=== PATIENT | female | born 1965 | race Caucasian/White ===

== ENCOUNTER 2018-03-25 22:36 | Emergency (ER) | payer BC ==
[2018-03-25 22:40] VITALS: BP 122/74; PULSE 84; RESP 16; TEMP 98.6; O2SAT 98
--- NOTE | 2018-03-25 22:58 | PD ---
HPI Chief Complaint: Injury Time Seen by Provider: 22:51 Travel History International Travel<30 days: No Contact w/Intl Traveler<30days: No Traveled to known affect area: No History of Present Illness HPI 52-year-old female here for evaluation of right wrist injury. The patient reports that she was at a hotel when she slipped on wet deepali onto an outstretched right arm. This occurred this evening. She experienced immediate pain in her right wrist. She also has some mild pain in her right great toe. Right wrist pain is moderate to severe, constant, worse with movements and palpation, slightly improved with rest. She denies head injury or LOC. No head neck or back pain. No pain in any other joint or extremity. She is right- hand dominant. PFSH Past Medical History Anxiety: Yes Diminished Hearing: No Immunizations Current: Yes ?: Not Past Surgical History Appendectomy: Yes Social History Alcohol Use: Yes Tobacco Use: Yes Substance Use: No Allergies-Medications (Allergen,Severity, Reaction): Coded Allergies: No Known Allergies (Unverified , 03/25/18) Reported Meds & Prescriptions Reported Meds & Active Scripts Active Ibuprofen 600 Mg Tab 600 Mg PO Q6H PRN Percocet (Oxycodone-Acetaminophen) 5-325 mg Tab 1 Tab PO Q6H PRN Review of Systems Except as stated in HPI: all other systems reviewed are Neg Physical Exam Narrative GENERAL: Well-developed, well-nourished, awake, alert, no apparent distress. SKIN: Focused skin assessment warm/dry. No lacerations or abrasions. HEAD: Atraumatic. Normocephalic. EYES: Pupils equal and round. No scleral icterus. No injection or drainage. ENT: Mucous membranes pink and moist. NECK: Trachea midline. No JVD. CARDIOVASCULAR: Regular rate and rhythm. Bilateral distal radial pulses are brisk and equal. RESPIRATORY: No accessory muscle use. Clear to auscultation. Breath sounds equal bilaterally. MUSCULOSKELETAL: Right wrist with obvious deformity and moderate diffuse swelling with limited range of motion and diffuse tenderness. The rest of her joints and extremities are without deformity, without tenderness, with normal range of motion. Right upper extremity is neurovascularly intact. All compartments in the right forearm are supple. No midline thoracic or lumbar spine tenderness or step-off. NEUROLOGICAL: Awake and alert. No obvious cranial nerve deficits. Motor grossly within normal limits. Normal speech. PSYCHIATRIC: Appropriate mood and affect; insight and judgment normal. Data Data Last Documented VS Vital Signs Date Time Temp Pulse Resp B/P (MAP) Pulse Ox O2 Delivery O2 Flow Rate FiO2 03/26/18 00:46 76 16 116/68 (84) 98 Room Air 03/26/18 00:15 2.00 03/25/18 22:40 98.6 Orders Orders Basic Metabolic Panel (Bmp) (03/25/18 22:54) Complete Blood Count With Diff (03/25/18 22:54) Prothrombin Time / Inr (Pt) (03/25/18 22:54) Act Partial Throm Time (Ptt) (03/25/18 22:54) Iv Access Insert/Monitor (03/25/18 22:54) Ecg Monitoring (03/25/18 22:54) Oximetry (03/25/18 22:54) Sodium Chloride 0.9% Flush (Ns Flush) (03/25/18 23:00) Wrist, Complete (Rff5kil) (03/25/18 ) Toe (Min 2vws) (03/25/18 ) Morphine Inj (Morphine Inj) (03/25/18 23:00) Lidocaine 2% Inj (Xylocaine 2% Inj) (03/25/18 23:45) Propofol 200 Mg/20 Ml Inj (Diprivan 200 (03/26/18 00:00) Morphine Inj (Morphine Inj) (03/26/18 00:00) Forearm (2vws) (03/26/18 ) Ketorolac Inj (Toradol Inj) (03/26/18 00:45) Shoe Post Op (03/26/18 ) Labs Laboratory Tests Test 03/25/18 23:30 White Blood Count 7.4 TH/MM3 Red Blood Count 4.31 MIL/MM3 Hemoglobin 14.8 GM/DL Hematocrit 42.3 % Mean Corpuscular Volume 98.1 FL Mean Corpuscular Hemoglobin 34.3 PG Mean Corpuscular Hemoglobin Concent 34.9 % Red Cell Distribution Width 15.3 % Platelet Count 183 TH/MM3 Mean Platelet Volume 7.3 FL Neutrophils (%) (Auto) 54.3 % Lymphocytes (%) (Auto) 36.6 % Monocytes (%) (Auto) 5.8 % Eosinophils (%) (Auto) 2.3 % Basophils (%) (Auto) 1.0 % Neutrophils # (Auto) 4.0 TH/MM3 Lymphocytes # (Auto) 2.7 TH/MM3 Monocytes # (Auto) 0.4 TH/MM3 Eosinophils # (Auto) 0.2 TH/MM3 Basophils # (Auto) 0.1 TH/MM3 CBC Comment DIFF FINAL Differential Comment Prothrombin Time 9.8 SEC Prothromb Time International Ratio 1.0 RATIO Activated Partial Thromboplast Time 24.6 SEC Blood Urea Nitrogen 12 MG/DL Creatinine 0.75 MG/DL Random Glucose 101 MG/DL Calcium Level 8.6 MG/DL Sodium Level 142 MEQ/L Potassium Level 3.8 MEQ/L Chloride Level 108 MEQ/L Carbon Dioxide Level 23.3 MEQ/L Anion Gap 11 MEQ/L Estimat Glomerular Filtration Rate 81 ML/MIN MDM Medical Decision Making Medical Screen Exam Complete: Yes Emergency Medical Condition: Yes Differential Diagnosis Right wrist fracture versus sprain versus contusion Narrative Course Right wrist x-ray shows transverse fracture of the distal radius with slight dorsal displacement and angulation with apex volar consistent with a Colles' fracture. Right great toe x-ray shows nondisplaced fracture of the first distal phalanx along the plantar aspect. I initially attempted to perform a hematoma block with 2% lidocaine, however the patient did not tolerate this well, and no lidocaine was injected into the hematoma. Procedural sedation was then performed by me using propofol, and close reduction was performed by me. Patient was placed in a sugar tong splint after reduction, and postreduction x-rays were ordered and show near-anatomic alignment of the distal radius fracture. There are no open wounds. This is a closed fracture. Patient can follow-up with orthopedics as an outpatient, and I will give her the name of the on-call orthopedist to follow-up with. I will also place her right foot in a postop shoe. The great toe fracture is also a close fracture. I will give her the name of the tobacco cutter conduit mechanic with him to follow-up with for this. She will be discharged home with prescription for Percocet as well as naproxen. She will also be placed in a right arm sling and was advised to remove her right shoulder from the sling every couple of hours to range her shoulder to prevent a frozen shoulder. She was advised on when to return to the emergency department. Both the patient and the patient's significant other verbalized understanding and agreement with plan. Procedures Procedure Narrative Procedural sedation: After the risks and benefits were discussed the following procedure was performed: MODERATE SEDATION: The patient was placed on a cardiac tech and pulse oximetry. An ambu bag and suction was immediately available at bedside. The patient was monitored by the nurse. Oxygen saturation , heart rate and blood pressure were monitored. Procedural sedation was acheived using 100 mg of IV propofol. The patient was observed until awake and alert. Procedural Sedation time in attendance was 20 minutes. Closed reduction of right distal radius fracture: After the patient was adequately sedated, closed reduction was performed by me. Sugar tong splint applied. Postreduction films ordered. Right hand neurovascularly intact prior to and after reduction. 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 Enciso or an orthopedist of your choice this week. Return to the emergency department for worsening symptoms or any other concerns. Scripts Ibuprofen (Ibuprofen) 600 Mg Tab 600 MG PO Q6H Y for Pain/Inflammation, #40 TAB 0 Refills Prov: Tello Woodward MD 03/26/18 Oxycodone-Acetaminophen (Percocet) 5-325 mg Tab 1 TAB PO Q6H Y for PAIN, #20 TAB 0 Refills Prov: Tello Woodward MD 03/26/18 Disposition: 01 DISCHARGE HOME Condition: Stable Tello Woodward MD March 25, 2018 22:58
[2018-03-25] MEDS ORDERED: MORPHINE SULFATE 8 MG/ML INJ IV PUSH ONE (23:00)
[2018-03-25] MEDS ORDERED: SODIUM CHLORIDE 0.9% FLUSH 10 ML FLUSH IV FLUSH PRN (23:00)
[2018-03-25 23:39] LABS: BASOPHIL # 0.1 TH/MM3 (0-0.2); EOSINOPHIL # 0.2 TH/MM3 (0-0.4); EOSINOPHIL % 2.3 % (0.0-4.0); HEMATOCRIT 42.3 % (35.0-46.0); HEMOGLOBIN 14.8 GM/DL (11.6-15.3); LYMPH % 36.6 % (9.0-44.0); LYMPHOCYTE # 2.7 TH/MM3 (1.0-4.8); MEAN CELL VOLUME 98.1 FL (80.0-100.0); MEAN CORPUSCULAR HEMOGLOBIN 34.3 PG (27.0-34.0); MEAN CORPUSCULAR HGB CONC 34.9 % (32.0-36.0); MEAN PLATELET VOLUME 7.3 FL (7.0-11.0); MONO % 5.8 % (0.0-8.0); MONOCYTE # 0.4 TH/MM3 (0-0.9); NEUT % 54.3 % (16.0-70.0); PLATELET COUNT 183 TH/MM3 (150-450); RED BLOOD COUNT 4.31 MIL/MM3 (4.00-5.30); RED CELL DISTRIBUTION WIDTH 15.3 % (11.6-17.2); WHITE BLOOD COUNT 7.4 TH/MM3 (4.0-11.0)
[2018-03-25] MEDS ORDERED: LIDOCAINE HCL 2% 50 ML VIAL NERV BLOCK ONE (23:45)
[2018-03-25 23:48] LABS: PROTHROMBIN TIME - PATIENT 9.8 SEC (9.8-11.6)
--- NOTE | 2018-03-25 23:51 | RADRPT ---
EXAM DATE/TIME: 03/25/2018 23:22 [facility] COMPARISON: No previous studies available for comparison. INDICATIONS : Right wrist pain post fall. MEDICAL HISTORY : Osteoporosis. SURGICAL HISTORY : None. ENCOUNTER: Initial ACUITY: 1 day PAIN SCORE: 10/10 LOCATION: Right wrist FINDINGS: Three view examination of the right wrist demonstrates a transverse fracture of the distal femoral me taphysis with slight anterior angulation. The joint spaces are maintained. Bony mineralization is no rmal. CONCLUSION: Transverse fracture the distal radius. Fabrizio Naranjo MD on March 25, 2018 at 23:49 Board Certified Radiologist. This report was verified electronically.
--- NOTE | 2018-03-25 23:54 | RADRPT ---
EXAM DATE/TIME: 03/25/2018 23:36 [facility] COMPARISON: No previous studies available for comparison. INDICATIONS : Right big toe pain from a fall. MEDICAL HISTORY : Osteoporosis. SURGICAL HISTORY : None. ENCOUNTER: Initial ACUITY: 1 day PAIN SCORE: 6/10 LOCATION: Right toe FINDINGS: Examination of the first digit of the right foot demonstrates a nondisplaced fracture involving the p lantar base of the first distal phalangeal bone. No radiopaque foreign bodies are seen. The soft ti ssues are intact. CONCLUSION: Nondisplaced fracture of the first distal phalange bone along the plantar aspect. Fabrizio Naranjo MD on March 25, 2018 at 23:52 Board Certified Radiologist. This report was verified electronically.
[2018-03-26] VITALS (7 sets, daily range): BP systolic 103–122; BP diastolic 65–85; PULSE 73–83; RESP 16–18; O2SAT 95–99
[2018-03-26] MEDS ORDERED: MORPHINE SULFATE 8 MG/ML INJ IV PUSH ONE
[2018-03-26] MEDS ORDERED: PROPOFOL 200 MG/20 ML AMP IV ONE
[2018-03-26 00:02] LABS: BICARBONATE 23.3 MEQ/L (21.0-32.0); CALCIUM 8.6 MG/DL (8.5-10.1); CREATININE 0.75 MG/DL (0.50-1.00)
[2018-03-26] MEDS ORDERED: PERC5TAB12 PO (00:43)
[2018-03-26] MEDS ORDERED: IBUP-232 PO (00:43)
[2018-03-26] MEDS ORDERED: KETOROLAC TROMETHAMINE 30 MG/ML (IVP) VIAL IV PUSH ONE (00:45)
--- NOTE | 2018-03-26 00:46 | RADRPT ---
EXAM DATE/TIME: 03/26/2018 00:22 [facility] COMPARISON: , 23:36. WRIST RIGHT COMPLETE ([id number]), March 25, 2018, 23:22. INDICATIONS : Post reduction. MEDICAL HISTORY : None. SURGICAL HISTORY : None. ENCOUNTER: Initial ACUITY: 1 day PAIN SCORE: 0/10 LOCATION: Right wrist FINDINGS: Two view examination of the right forearm demonstrates the fracture has been ingested now with near a natomic alignment.. Bony mineralization is normal. The soft tissue structures are intact. CONCLUSION: Cast material overlies fine bony detail. Distal radial fracture now shows good alignment. Fabrizio Naranjo MD on March 26, 2018 at 0:44 Board Certified Radiologist. This report was verified electronically.
== END 2018-03-26 01:34 | disposition home or self-care (01) ==
LOC: NEPD 22:36
DX: S52.531A Colles' fracture of right radius, initial encounter for closed fracture (principal); S92.424A Nondisplaced fracture of distal phalanx of right great toe, initial encounter for closed fracture; W01.0XXA Fall on same level from slipping, tripping and stumbling without subsequent striking against object, initial encounter; Y92.59 Other trade areas as the place of occurrence of the external cause
CPT/HCPCS: 25605; 73090; 73110; 73660; 80048; 85025; 85610; 85730; 96374; 96375; 96376; 99284; J1885; J2270; L3260

== ENCOUNTER 2018-04-01 10:04 | Emergency (ER) | payer BC ==
[~2018-04-01] VITALS: Ht 165.1 cm; Wt 66.0 kg
[~2018-04-01 10:04] MED LIST: IBUP-232 PO; PERC5TAB12 PO
[2018-04-01 10:07] VITALS: BP 159/76; PULSE 76; RESP 18; TEMP 98.2; O2SAT 98
[2018-04-01] MEDS ORDERED: TRAM50TA PO (10:23)
[2018-04-01] MEDS ORDERED: IBUP-232 PO (10:23)
--- NOTE | 2018-04-01 10:30 | PD ---
HPI Chief Complaint: Pain: Acute or Chronic Time Seen by Provider: 10:10 Travel History International Travel<30 days: No Contact w/Intl Traveler<30days: No Traveled to known affect area: No History of Present Illness HPI 52-year-old female presents emergency department with increasing pain and swelling in the right hand and fingers secondary to recent distal radial fracture with previous reduction and sugar tong splint application on March 29, 2018. Patient states she is scheduled to see the orthopedist on 09 April. She has been taking ibuprofen and oxycodone for pain. She is concerned because hand and fingers swell more at night and she develops tingling. She states when she ices it it seems to resolve somewhat but she is concerned about the ongoing pain. She has no other acute complaints. She has no known drug allergies. PFSH Past Medical History Anxiety: Yes Diminished Hearing: No Immunizations Current: Yes ?: Not Past Surgical History Appendectomy: Yes Social History Alcohol Use: Yes Tobacco Use: Yes Substance Use: No Allergies-Medications (Allergen,Severity, Reaction): Coded Allergies: No Known Allergies (Unverified , 04/01/18) Reported Meds & Prescriptions Reported Meds & Active Scripts Active Tramadol (Tramadol HCl) 50 Mg Tab 50 Mg PO Q6H PRN Ibuprofen 600 Mg Tab 600 Mg PO Q6H PRN Percocet (Oxycodone-Acetaminophen) 5-325 mg Tab 1 Tab PO Q6H PRN Review of Systems Except as stated in HPI: all other systems reviewed are Neg General / Constitutional: No: Fever Eyes: No: Visual changes HENT: No: Headaches Cardiovascular: No: Chest Pain or Discomfort Respiratory: No: Shortness of Breath Gastrointestinal: No: Abdominal Pain Genitourinary: No: Dysuria Musculoskeletal: Positive: Myalgias, Arthralgias, Limited ROM, Edema, Pain ( See history of present illness) Skin: No Rash Neurologic: No: Weakness Psychiatric: No: Depression Endocrine: No: Polydipsia Hematologic/Lymphatic: No: Easy Bruising Physical Exam Narrative GENERAL: Patient appears in mild to moderate distress. SKIN: Warm and dry. Normal color. Normal turgor. Patient's right hand does appear to be swollen with ecchymosis of the bases of all the fingers. Capillary refill is brisk however. Neurovascular exam currently is normal. HEAD: Atraumatic. Normocephalic. EYES: Pupils equal and round. No scleral icterus. No injection or drainage. ENT: No nasal bleeding or discharge. Mucous membranes pink and moist. Pharynx is clear. Airways patent. NECK: Trachea midline. Supple. CARDIOVASCULAR: Regular rate and rhythm. RESPIRATORY: No accessory muscle use. Clear to auscultation. Breath sounds equal bilaterally. MUSCULOSKELETAL: Extremities without clubbing, cyanosis, or edema. No obvious deformities. NEUROLOGICAL: Awake and alert. No obvious cranial nerve deficits. Motor grossly within normal limits. Five out of 5 muscle strength in the arms and legs. Normal speech. PSYCHIATRIC: Appropriate mood and affect; insight and judgment normal. Data Data Last Documented VS Vital Signs Date Time Temp Pulse Resp B/P (MAP) Pulse Ox O2 Delivery O2 Flow Rate FiO2 04/01/18 10:07 98.2 76 18 159/76 (103) 98 MDM Medical Decision Making Medical Screen Exam Complete: Yes Emergency Medical Condition: Yes Medical Record Reviewed: Yes Differential Diagnosis Right wrist fracture. Pain and swelling. Need for re-cast. Narrative Course The Abelino bandage is removed from the patient's previous splint with resolution of patient's symptoms. The sugar tong splint is maintained and rewrapped with Abelino bandage less restrictively. Patient is continued with sling and splint with recommended ice and elevation frequently. Patient is given a refill of her ibuprofen 600 mg 4 times daily. Patient also given tramadol 50 mg 1 every 6 hours as needed pain #20. Patient is to follow-up with the orthopedist as scheduled on 09 April. Patient can return if symptoms worsen as needed. Diagnosis Primary Impression: Cast discomfort Additional Impression: Cast in place on extremity Referrals: Orthopedist 1 week Patient Instructions: General Instructions, How to Use a Sling (GEN), RICE Therapy (ED), Splint Care (DC) Additional Instructions: The Abelino bandage is removed from the patient's previous splint with resolution of patient's symptoms. The sugar tong splint is maintained and rewrapped with Abelino bandage less restrictively. Patient is continued with sling and splint with recommended ice and elevation frequently. Patient is given a refill of her ibuprofen 600 mg 4 times daily. Patient also given tramadol 50 mg 1 every 6 hours as needed pain #20. Patient is to follow-up with the orthopedist as scheduled on 09 April. Patient can return if symptoms worsen as needed. Med/Other Pt SpecificInfo: Prescription(s) given Scripts Tramadol (Tramadol) 50 Mg Tab 50 MG PO Q6H Y for PAIN, #20 TAB 0 Refills Prov: Lisas Patterson MD 04/01/18 Ibuprofen (Ibuprofen) 600 Mg Tab 600 MG PO Q6H Y for Pain/Inflammation, #40 TAB 0 Refills Prov: Lissa Patterson MD 04/01/18 Disposition: 01 DISCHARGE HOME Condition: Stable Mack Huber April 01, 2018 10:30
== END 2018-04-01 11:29 | disposition home or self-care (01) ==
LOC: NEPD 10:04
DX: Z46.89 Encounter for fitting and adjustment of other specified devices (principal); F41.9 Anxiety disorder, unspecified; Z72.0 Tobacco use
CPT/HCPCS: 99281